=== PATIENT | male | born 2000 | race Caucasian/White ===

== ENCOUNTER 2019-02-10 12:58 | Emergency (ER) | payer BC ==
[~2019-02-10] VITALS: Ht 180.3 cm; Wt 104.3 kg
[2019-02-10] MEDS ORDERED: FLEXERIL PO (15:29)
[2019-02-10] MEDS ORDERED: NABUMETONE 750750 M1 PO (15:29)
[2019-02-10 15:47] VITALS: BP 122/80
== END 2019-02-10 15:47 | disposition home or self-care (01) ==
LOC: M.ERS 12:58
DX: S29.012A Strain of muscle and tendon of back wall of thorax, initial encounter (principal); V89.2XXA Person injured in unspecified motor-vehicle accident, traffic, initial encounter; Y92.410 Unspecified street and highway as the place of occurrence of the external cause; Y93.89 Activity, other specified; Y99.8 Other external cause status